=== PATIENT | male | born 1970 | race Caucasian/White ===

== ENCOUNTER 2019-10-15 09:19 | Outpatient (CLI) | payer OTHER, SELFPAY ==
--- NOTE | 2019-10-15 09:22 | ECG_ITS ---
Measurements Intervals [place] Rate: 64 P: 60 MS: 188 QRS: 55 QRSD: 89 T: 69 QT: 410 QTc: 424 Interpretive Statements SINUS RHYTHM MINIMAL Q WAVES- INFERIOR LEADS BORDERLINE ECG Electronically Signed On 10-15-2019 9:30:43 CDT by Luis Shafer D.O.
== END 2019-10-15 09:20 | disposition home or self-care (01) ==
LOC: ANHSURGERY 09:22
PROVIDERS: Visit Provider Podiatrist Foot & Ankle Surgery
DX: Z87.891 Personal history of nicotine dependence (principal); Z01.812 Encounter for preprocedural laboratory examination
CPT/HCPCS: 93005

== ENCOUNTER 2019-10-16 02:07 | Outpatient (CLI) | payer OTHER, SELFPAY ==
[2019-10-16 20:49] LABS: SARS-CoV-2 RNA PCR Negative
== END 2019-10-16 02:08 | disposition home or self-care (01) ==
LOC: ANHCOVIDDT 02:07
PROVIDERS: Visit Provider Podiatrist Foot & Ankle Surgery
DX: Z01.812 Encounter for preprocedural laboratory examination (principal); Z20.828 Contact with and (suspected) exposure to other viral communicable diseases
CPT/HCPCS: 87635; C9803; U0003

== ENCOUNTER 2019-10-18 01:37 | Day surgery (SDC) | payer OTHER, SELFPAY ==
[2019-10-10 14:52] VITALS: BMI 24.4
--- NOTE | ~2019-10-18 | XR_ITS ---
EXAMINATION: XR surgery orthopedic DATE: 10/18/2019 10:08 INDICATION: Right foot surgery TECHNIQUE: A single dorsal plantar fluoroscopic spot images of the right forefoot was obtained during procedure performed by Dr. Childress. Radiologist was not present for the imaging or procedure. The a mount of fluoroscopy time used during this procedure was 0.1 minutes. COMPARISON: None. FINDINGS: Small amount of likely postoperative gas centered about and possibly within the fourth metatarsophala ngeal joint space. Osteotomies along the lateral base of the fourth proximal phalanx and at the head of the fifth proximal phalanx with widening of the fifth proximal interphalangeal joint. Alignment is otherwise normal. No fracture. IMPRESSION: 1. Osteotomy at the lateral base of the fourth proximal phalanx and at the head of the fifth proximal phalanx. See procedure note for further detail. Reviewed, dictated and finalized at location B.
--- NOTE | 2019-10-18 07:12 | WPDHPUPDATE1 ---
History and Physical Update Update Date/Time: 10/18/19 07:12 History and Physical has been reviewed, including an updated exam of the patient. There are NO changes in the patient's condition. Risks, benefits, and alternatives have been discussed and questions answered. Patient agrees to proceed with procedure.
[2019-10-18] MEDS: LACTATED RINGERS 1,000 ML 30 ML IV CONT (08:45)
--- NOTE | 2019-10-18 08:55 | WPDANESEPPF ---
Anes - Initial Pre Proc Eval Procedure: Operation Date: 10/18/19 10:00 Proposed Procedures p Arthroplasty Fifth Digit Right Foot, Partial Phalangectomy Fourth Digit Right Foot - Luis A Childress JR, MD Date/Time: 10/18/19 08:55 Surgeon: Luis A Childress JR, MD Pre Op Diagnosis: Ambar Toro Right Foot Patient Data Age: 48 Gender: M Height: 6 ft 1 in Weight: 85.2 kg Allergies Allergy/AdvReac Type Severity Reaction Status Date / Time No Known Allergies Allergy Verified 10/18/19 08:19 Home Medications Medication Instructions Recorded Confirmed Type No Home Medications 10/10/19 10/18/19 History Patient hx anesthesia problems: none Family hx anesthesia problems: none PMF Past Medical History Medical History OSVALDO (obstructive sleep apnea) Smoker Social History Social History Smoking packs per day: 2 Smoking cigarettes per day: 40.0 Years smoked: 33 Smoking pack-years: 66.00 Smoking status: Current every day smoker Tobacco type: cigarettes Alcohol intake: current Drinks per week: 12 Spiritual care concerns: No Anes - Eval Final PreProcedure Day of Procedure 10/18/19 08:55 Patient weight: overweight Heart: regular rate and rhythm Lungs: clear to auscultation Airway: Mallampati scale class II Neurological: alert and oriented Last oral intake: >/= 8 hours ASA classification: II Emergent: no Anesthetic plan: proceed Anesthesia type and monitoring: general GIVS and standard monitoring Informed Consent: The patient's anesthetic plan and its attendant risks and benefits were discussed with the patient/family/POA. Questions were solicited and answers provided to the satisfaction of the patient/family/POA.
[2019-10-18 09:14] VITALS: BP 162/94; PULSE 67; RESP 16; TEMP 36.3; O2SAT 100
[2019-10-18] MEDS: ceFAZolin 2 GM/D5W 50 ML 2 GM/50 ML BAG IVPB (09:33)
[2019-10-18] MEDS: LIDOCAINE HCL 2% LOCAL INJ 20 ML VIAL INFILTRATE (10:05)
--- NOTE | 2019-10-18 10:21 | PM.OP ---
Procedure Note - Brief Procedure Note - Brief Date of procedure: 10/18/19 Pre-op diagnosis: Heloma Molle Right Foot Post-op diagnosis: same Procedure performed: 1. Arthroplasty of the 5th digit proximal interphalangeal joint right foot 2. Partial phalangectomy 4th digit right foot Anesthesia: MAC and local Surgeon: Lui sA Childress JR, MD Estimated blood loss (mL): 1 Complications: No immediate complications Condition: stable Disposition: same day
[2019-10-18 10:22] VITALS: BP 126/82; PULSE 72; RESP 21; O2SAT 98
[2019-10-18 10:50] VITALS: BP 142/92; PULSE 64; RESP 20; O2SAT 98
[2019-10-18 11:10] VITALS: BP 146/88; PULSE 60; RESP 14
--- NOTE | 2019-10-18 12:22 | OP_ITS ---
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 PROCEDURE: 1. Arthroplasty of the head of the proximal phalanx of the 5th digit. 2. Partial phalangectomy, lateral aspect of the base of the 4th digit, right foot. PATHOLOGY: None. ANESTHESIA: MAC with local. HEMOSTASIS: Pneumatic ankle tourniquet at 250 mmHg. ESTIMATED BLOOD LOSS: Minimal. MATERIALS USED: 4-0 Vicryl and 4-0 Prolene. INJECTABLES: 20 mL of a 1:1 mixture of 2% lidocaine plain and 0.5% Marcaine plain injected preoperatively. COMPLICATIONS: None. PROCEDURE IN DETAIL: Under mild sedation, the patient was brought into the operating room, placed on the operating table in the supine position. Pneumatic ankle tourniquet was placed about the patient's right ankle. Following IV sedation, local anesthesia was obtained about the right foot utilizing 20 mL of a 1:1 mixture of 2% lidocaine plain and 0.5% Marcaine plain. The foot was then scrubbed, prepped, and draped in the usual aseptic manner. An Esmarch bandage was then used to examine the patient's right foot and the pneumatic ankle tourniquet was then inflated. Surgery began in the following manner: Attention was directed to the dorsal aspect of the 4th digit along the base of the proximal phalanx. An incision was made just lateral to the extensor tendons. The incision was continued deep down through the subcutaneous tissues using sharp and blunt dissection. All bleeders were cauterized as necessary. At this point, a small 2 cm capsular and periosteal incision was made over the lateral aspect of the base of the proximal phalanx. Next, utilizing an oscillating saw blade, the base of the middle phalanx as well as the lateral aspect of the base of the proximal phalanx of the 4th digit as well as the prominent head of the 4th metatarsal was resected and passed from the operative site. The sagittal bone saw was used to feather and remodel the base of the proximal phalanx laterally as well as the head of the 4th metatarsal in order to provide a smooth contoured surface and prevent ulceration. The wound site was then flushed with copious amounts of sterile saline. Next, the periosteum and capsular structures were reapproximated with 4-0 Vicryl. Next, the subcutaneous structures were reapproximated with 4-0 Vicryl and finally the skin was reapproximated with 4-0 Prolene in simple interrupted suture technique. Attention was then directed to the dorsal aspect of the proximal interphalangeal joint of the 5th digit of the right foot. A small 2 cm incision was centralized over the joint just lateral to the extensor tendon. At this point, the incision was continued deep down through the subcutaneous structures utilizing a 15 blade. All bleeders were cauterized as necessary. Next, a small periosteum and capsular incision was made over the dorsal aspect of the proximal interphalangeal joint in a transverse manner. Next, the periosteum and capsular structures as well as extensor tendon overlying the proximal interphalangeal joint were freed of all tendinous and capsular structures exposing the head of the proximal phalanx at the operative site. Next, utilizing a small oscillating saw blade, the head of the proximal phalanx was resected. Utilizing the same oscillating saw blade, all rough edges were smoothed out. Next, the wound site was flushed with copious amounts of sterile saline. At this point, the medial contracture that was present to the 5th digit was noted to be reduced. Next, the extensor tendon and capsular struc
== END 2019-10-18 11:20 | disposition home or self-care (01) ==
PROVIDERS: Visit Provider Podiatrist Foot & Ankle Surgery
PROC: (CPT 28160; principal; 2019-10-18 10:00)
DX: L84 Corns and callosities (principal); L97.519 Non-pressure chronic ulcer of other part of right foot with unspecified severity; G47.33 Obstructive sleep apnea (adult) (pediatric); F17.210 Nicotine dependence, cigarettes, uncomplicated
CPT/HCPCS: 28160; 28126; J0690; J2250; J2704; J3010; J7120